=== PATIENT | female | born 1955 | race Hispanic/Latino ===

== ENCOUNTER 2020-01-28 20:23 | Observation (INO) | payer MEDICARE, OTHER ==
[~2020-01-28 20:23] MED LIST: Iopamidol-370 76% 500 ML 1 ML ONE
[2020-01-28] MEDS ORDERED: Ondansetron PF 4 MG/2 ML Vial ONE (21:08)
[2020-01-28] MEDS ORDERED: Ketorolac Tromethamine 30 MG/ML VIAL ONE (21:08)
[2020-01-28] MEDS ORDERED: Morphine 4 MG/ML VIAL ONE ×2 (21:08→23:03)
[2020-01-28 21:17] LABS: #Basophils 0.1 thou/uL (0.0-0.2); #Eosinphils 0.2 thou/uL (0.0-0.7); #Lymphocytes 2.7 thou/uL (1.20-3.40); #Monocytes 0.4 thou/uL (0.11-0.59); #Neutrophils 10.5 thou/uL (1.40-6.50); %Basophils 0.6 % (0.0-1.0); %Eosinophils 1.2 % (0.0-10.0); %Lymphocytes 19.4 % (21.0-51.0); %Monocytes 3.1 % (0.0-10.0); %Neutrophils 75.7 % (42.0-75.0); Hemoglobin 12.2 g/dL (12.0-16.0); Mean Corpuscular HGB CONC 33.5 g/dL (32.0-36.0); Mean Corpuscular Hemoglobin 29.2 pg (27.0-31.0); Mean Corpuscular Volume 87.2 fL (78.0-98.0); Mean Platelet Volume 8.2 fL (7.4-10.4); Platelet Count 298 thou/uL (130-400); RBC Distribution Width 11.5 % (11.5-14.5); Red Blood Cell (RBC) Count 4.17 mill/uL (4.20-5.40); White Blood Cell (WBC) Count 13.9 thou/uL (4.8-10.8)
[2020-01-28 21:17] LABS: Bilirubin Negative (Negative); Blood, Urine Negative (Negative); Clarity Clear (Clear); Glucose, Urine (Dipstick) Normal (Negative); Ketone, Urine Negative (Negative); Leukocyte Negative Leu/uL (Negative); Nitrite Negative (Negative); Protein, Urine (Dipstick) Negative (Neg-Trace); Specific Gravity, Urine 1.022 (1.002-1.036); Urobilinogen Normal mg/dL (Less than 2)
[2020-01-28 21:42] LABS: ALT (SGPT) 13 U/L (8-55); AST (SGOT) 10 U/L (5-34); Albumin 3.9 g/dL (3.4-4.8); Alkaline Phosphatase 71 U/L (40-110); Anion Gap 11 mmol/L (10-20); BUN (Urea Nitrogen) 22 mg/dL (9.8-20.1); Bilirubin, Total 0.4 mg/dL (0.2-1.2); Calc. Creatinine Clearance 0 mL/min (70-130); Calcium 8.8 mg/dL (7.8-10.44); Carbon Dioxide 29 mmol/L (23-31); Chloride 102 mmol/L (98-107); Estimated GFR-MDRD 84; Globulin 2.8 g/dL (2.4-3.5); Glucose 90 mg/dL (80-115); Lipase 16 U/L (8-78); Potassium 3.6 mmol/L (3.5-5.1); Protein, Total 6.7 g/dL (6.0-8.3); Sodium 138 mmol/L (136-145)
--- NOTE | 2020-01-28 22:43 | CT ---
CT ABDOMEN AND PELVIS WITH IV CONTRAST 01/28/2020 CLINICAL INFORMATION: Right flank and right lower quadrant abdominal pain. Nausea. COMPARISON: None. Technique: Multiple contiguous axial CT images are obtained through the abdomen and pelvis with IV contrast. Cor onal reformatted images are provided. FINDINGS: Lower Chest: Minimal linear scarring versus atelectasis is seen at the posterior right lung base. Lef t lung base is clear. Vessels: Vascular calcifications are seen in the abdominal aorta and iliac arteries. Abdomen: Portal vein:Patent Gallbladder: Surgically absent. Liver: Subcentimeter too small to characterize hypodense lesion is seen in the posterior segment righ t hepatic lobe. Spleen: within normal limits. Pancreas: within normal limits. Adrenals: within normal limits. Kidneys: within normal limits. Bowel: Small amount of retained fecal material is seen in the colon. Loops of small bowel are normal in caliber. Appendix: There is an appendicolith measuring 6 mm seen involving the origin of the appendix, and the appendix distal to this region is fluid-filled with dilatation of the tip of the appendix measuring 12 mm. There is minimal amount of periappendiceal stranding. Findings are suggestive of vini endicitis. Peritoneum: No ascites or free air; no fluid collection. Mesentery and Retroperitoneum: No enlarged mesenteric or retroperitoneal lymph nodes. Abdominal Wall: Tiny fat-containing umbilical hernia. Pelvis: Reproductive Organs: Hysterectomy. Bladder: within normal limits. Bones: Mild degenerative changes are seen in the spine. IMPRESSION: 1. Acute appendicitis. 2. Too small to characterize hypodense lesion right hepatic lobe. 3. Post surgical changes related to cholecystectomy and hysterectomy. 4. Above findings discussed Dr. Harrison in the emergency department on 01/28/2020 at 2239 hours.
[2020-01-28] MEDS ORDERED: Piperacillin/Tazobactam 3.375 GM VIAL ONE (23:03)
[2020-01-29] MEDS ORDERED: Ondansetron PF 4 MG/2 ML Vial IVP PRN ×2 (00:39→09:53)
[2020-01-29] MEDS ORDERED: Ondansetron ODT 4 MG TAB SL PRN (00:39)
[2020-01-29] MEDS ORDERED: Morphine 2 MG/ML VIAL SLOW IVP PRN ×2 (00:40→09:53)
[2020-01-29 01:03] VITALS: BMI 37.7
[2020-01-29] MEDS: Lactated Ringer's 1,000 ML IV SCH ×2 (01:30→08:52)
[2020-01-29] MEDS ORDERED: Piperacillin/Tazobactam 3.375 GM in Sodium Chloride 0.9% 100 ML IVPB SCH ×2 (06:00→12:00)
[2020-01-29] MEDS ORDERED: Bupivacaine 0.25% HCL 30 ML VIAL ONE (07:18)
[2020-01-29] MEDS ORDERED: Lidocaine 1% w/Epinephrine 1:100K 20 ML VIAL ONE (07:18)
[2020-01-29] MEDS ORDERED: Fentanyl 100 MCG/2 ML VIAL ONE (07:40)
[2020-01-29] MEDS ORDERED: Meperidine HCl/PF 25 MG/ML VIAL ONE (09:19)
[2020-01-29] MEDS ORDERED: Sodium Chloride 0.9% 1,000 ML IV SCH (09:53)
[2020-01-29] MEDS ORDERED: Morphine 4 MG/ML VIAL SLOW IVP PRN (09:53)
[2020-01-29] MEDS ORDERED: Promethazine HCl 25 MG/ML VIAL IM PRN (09:53)
[2020-01-29] MEDS ORDERED: hydrALAZINE 20 MG/ML VIAL SLOW IVP PRN (09:53)
[2020-01-29] MEDS ORDERED: Dextrose 50% Abboject 50 ML SYRINGE SLOW IVP PRN (09:53)
[2020-01-29] MEDS ORDERED: Dextrose 5% in Water 1,000 ML IV PRN (09:53)
--- NOTE | 2020-01-29 10:40 | HP ---
CHIEF COMPLAINT: Right lower quadrant pain. HISTORY OF PRESENT ILLNESS: This is a 64-year-old female with a history of pain in the right lower quadrant for 2 days. Pain is associated with nausea. No vomiting. No change in stool. No history of this pain before. No chronic abdominal pain or inflammatory bowel disease. PAST MEDICAL HISTORY: Includes hypertension. PAST SURGICAL HISTORY: Hysterectomy and abdominoplasty. MEDICATIONS: Taken daily losartan/hydrochlorothiazide. ALLERGIES: NO KNOWN DRUG ALLERGIES. SOCIAL HISTORY: No smoking or alcohol or other drugs. REVIEW OF SYSTEMS: 10-system review of systems is otherwise negative as described above. PHYSICAL EXAMINATION: HEENT: Sclerae are anicteric. Oropharynx clear. NECK: No lymphadenopathy. CHEST: Clear. HEART: Regular rate. ABDOMEN: Soft. Tender right lower quadrant with localized guarding. No rebound. No abdominal hernias. EXTREMITIES: No ischemia or edema to extremities. IMAGING STUDIES: CT scan shows acute appendicitis. ASSESSMENT: Acute appendicitis. PLAN: Laparoscopic appendectomy. The risks, benefits, and alternatives discussed. She gives consent. We will do this today. Job ID: [id number]
[2020-01-29] MEDS ORDERED: PHENYLEPHRINE-NS 100 MCG/ML 10 ML SYRINGE ONE (10:59)
[2020-01-29] MEDS ORDERED: Dexamethasone 20 MG/5 ML VIAL ONE (10:59)
[2020-01-29] MEDS ORDERED: PROPOFOL 200 MG/20 ML VIAL ONE (10:59)
[2020-01-29] MEDS ORDERED: Succinylcholine Chloride 20 MG/ML 10 ml SYRINGE FS ONE (10:59)
[2020-01-29] MEDS ORDERED: Glycopyrrolate 0.2 MG/ML 5 ML SYRINGE ONE (10:59)
[2020-01-29] MEDS ORDERED: Rocuronium Bromide 10 MG/ML (10ML VIAL) ONE (10:59)
[2020-01-29] MEDS ORDERED: Ketorolac Tromethamine 30 MG/ML VIAL ONE (10:59)
[2020-01-29] MEDS ORDERED: Lidocaine 1% PF 5 ML VIAL ONE (10:59)
[2020-01-29] MEDS ORDERED: EPHEDRINE 25 MG/5 ML SYRINGE ONE (10:59)
--- NOTE | 2020-01-29 11:03 | OP ---
DATE OF PROCEDURE: 01/29/2020 PREOPERATIVE DIAGNOSIS: Acute appendicitis. POSTOPERATIVE DIAGNOSIS: Acute appendicitis. OPERATION PERFORMED: Laparaoscopic appendectomy. ANESTHESIA: General endotracheal. ESTIMATED BLOOD LOSS: Minimal. COMPLICATIONS: None. FINDINGS: Appendicitis. SPECIMENS: Appendix. DESCRIPTION OF PROCEDURE: The patient was taken to the operating room and laid supine on the operating table. After general anesthetic was obtained, a Schrader catheter was placed. The abdomen was prepped and draped in a sterile fashion. A curved incision was made below the umbilicus. Cautery was used to dissect down to and incise the intra-abdominal fascia. The abdominal cavity was entered bluntly using a Rebecca clamp. A holding stitch of Vicryl was placed on each side of the fascia. A Janette trocar was placed. High-flow peritoneum was obtained. A suprapubic 5-mm port and a left lower quadrant 5-mm port were placed under direct camera visualization. The cecum was rolled over to reveal acute appendicitis. A small window was made at the base of the appendix at the mesoappendix. A laparoscopic stapler was fired across the base of the appendix. A reload was fired across the mesoappendix. There was no bleeding on the staple lines. The appendix was placed in the EndoCatch bag and brought out through the Janette. The right lower quadrant and pelvis was irrigated using sterile solution. There was no evidence of perforation, no pus. All port sites were infiltrated using local anesthesia. All ports were removed under camera visualization. Pneumoperitoneum was let down. Vicryl suture was used to close the fascial defect below the umbilicus; #4-0 Monocryl and Dermabond were used to close the skin incision. The patient was en route to recovery in stable condition. All instrument counts, needle counts, and lap counts were correct. Job ID: [id number]
[2020-01-29] MEDS: HYDROcodone/Acetaminophen 10/325 mg Tablet PO PRN ×2 (11:32→16:22)
[2020-01-29 11:49] LABS: SARS-CoV-2 MS2 Positive; SARS-CoV-2 N Gene Negative; SARS-CoV-2 S Gene Negative; SARS-CoV-2 by NAA Not Detected (NotDetected); SARS-CoV-2 orf1ab Negative
[2020-01-29 16:21] VITALS: BP 144/84; TEMP 98.3
[2020-01-29] MEDS ORDERED: Famotidine 20 MG TAB PO SCH (21:00)
[2020-01-29] MEDS ORDERED: Famotidine/PF 20 mg/2ml Vial SLOW IVP SCH (21:00)
[2020-01-30] MEDS ORDERED: Hydrochlorothiazide 25 MG TAB PO SCH (09:00)
[2020-01-30] MEDS ORDERED: Losartan 25 MG TAB PO SCH (09:00)
[2020-01-30] MEDS ORDERED: Non-Formulary Item 1 EACH (Irbesartan/Hydrochlorothiazide [Irbesartan-Hctz 300-12.5 Mg Tb PO SCH (09:00)
--- NOTE | 2020-02-01 14:47 | DIS ---
DATE OF ADMISSION: 01/28/2020 DATE OF DISCHARGE: 01/29/2020 ADMITTING DIAGNOSIS: Acute appendicitis. DISCHARGE DIAGNOSIS: Acute appendicitis. PROCEDURE: Laparoscopic appendectomy by Dr. Toledo without complication. CONDITION ON DISCHARGE: Improved. STAFF: Armin Toledo MD HOSPITAL COURSE: On postop day 1, the patient is doing well. She is discharged home. She will follow up with me in 2 weeks. Job ID: [id number]
== END 2020-01-29 16:36 | disposition home or self-care (01) ==
LOC: ERS 20:23 → SJJU 23:01
PROVIDERS: ADMIT Surgery; ATTEND Surgery
PROC: 0DTJ4ZZ Resection of Appendix, Percutaneous Endoscopic Approach (ICD-10-PCS; principal; 2020-01-28)
DX: K35.33 Acute appendicitis with perforation, localized peritonitis, and gangrene, with abscess (principal); I10 Essential (primary) hypertension; F32.9 Major depressive disorder, single episode, unspecified; Z79.899 Other long term (current) drug therapy; Z11.59 Encounter for screening for other viral diseases; Z20.828 Contact with and (suspected) exposure to other viral communicable diseases
CPT/HCPCS: 44970; 74177; 80053; 81003; 83690; 85025; 88304; 96361 ×2; 96365; 96366; 96375; 96376 ×2; 99285; G0378 ×2; J2270; U0003; 87635; J1100; J1885; J2175; J2405; J2543; J2704; J3010; J3490; Q9967; S0020

== ENCOUNTER 2020-04-13 08:28 | Outpatient (CLI) | payer MEDICARE ==
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
== END 2020-04-13 08:29 | disposition home or self-care (01) ==
LOC: BICRAD 08:28
PROVIDERS: ATTEND Internal Medicine
DX: S80.02XA Contusion of left knee, initial encounter (principal); M17.12 Unilateral primary osteoarthritis, left knee

== ENCOUNTER 2020-04-22 09:19 | Outpatient (CLI) | payer MEDICARE ==
--- NOTE | 2020-04-22 10:10 | BD ---
EXAM: Bone densitometry using DEXA HISTORY: 64 yo female. Screening for postmenopausal osteoporosis FINDINGS: L1--bone mineral density 0.917 g/sq cm; T score -0.7 ; Z score 1.0 L2--bone mineral density 0.957 g/sq cm; T score -0.6 ; Z score 1.2 L3--bone mineral density 0.896 g/sq cm; T score -1.7 ; Z score 0.2 L4--bone mineral density 0.877 g/sq cm; T score -1.7 ; Z score 0.3 Total L1-L4--bone mineral density 0.907 g/sq cm; T score -1.3 ; Z score 0.6 Left femoral neck--bone mineral density0.935; T score 2.8 ; Z score 2.1 Total proximal left femur--bone mineral density 1.114; T score 1.4 ; Z score 2.3 The 10 year fracture risk for a major osteoporotic fracture is 6.6% and for a hip fracture is 0.1%. IMPRESSION: Osteopenia
--- NOTE | 2020-04-22 10:32 | MMO ---
Bilateral MAMMO Bilat Screen [facility]. CLINICAL HISTORY: Patient is 64 years old and is seen for screening. The patient has no family history of breast cancer. The patient has no personal history of cancer. VIEWS: The views performed were: bilateral craniocaudal with tomosynthesis and bilateral mediolateral oblique with tomosynthesis. FILMS COMPARED: The present examination has been compared to prior imaging studies performed at [facility] on 12/30/2017 and 01/01/2019. This study has been interpreted with the assistance of computer-aided detection. MAMMOGRAM FINDINGS: The breasts are heterogeneously dense, which could obscure a lesion on mammography. There are stable calcifications seen in both breasts. There are no suspicious masses, suspicious calcifications, or new areas of architectural distortion. IMPRESSION: THERE IS NO MAMMOGRAPHIC EVIDENCE OF MALIGNANCY. A ROUTINE FOLLOW-UP MAMMOGRAM IN 1 YEAR IS RECOMMENDED. THE RESULTS OF THIS EXAM WERE SENT TO THE PATIENT. ACR BI-RADS Category 2 - Benign finding MAMMOGRAPHY NOTE: 1. A negative mammogram report should not delay a biopsy if a dominant of clinically suspicious mass is present. 2. Approximately 10% to 15% of breast cancers are not detected by mammography. 3. Adenosis and dense breasts may obscure an underlying neoplasm. Reported by: MARY JASMINE MD Electonically Signed: [id number]
== END 2020-04-22 09:20 | disposition home or self-care (01) ==
LOC: BICMAMMO 09:19
PROVIDERS: ATTEND Internal Medicine
DX: Z12.31 Encounter for screening mammogram for malignant neoplasm of breast (principal); N95.9 Unspecified menopausal and perimenopausal disorder; M85.88 Other specified disorders of bone density and structure, other site
CPT/HCPCS: 77063; 77067; 77080

== ENCOUNTER 2020-08-30 13:20 | Day surgery (SDC) | payer MEDICARE ==
[2020-08-30 08:17] LABS: #Eosinphils 0.2 thou/uL (0.0-0.7); #Lymphocytes 2.1 thou/uL (1.20-3.40); #Monocytes 0.2 thou/uL (0.11-0.59); #Neutrophils 4.5 thou/uL (1.40-6.50); %Basophils 0.6 % (0.0-1.0); %Lymphocytes 30.2 % (21.0-51.0); %Monocytes 2.3 % (0.0-10.0); %Neutrophils 63.9 % (42.0-75.0); Hemoglobin 12.1 g/dL (12.0-16.0); Mean Corpuscular HGB CONC 31.6 g/dL (32.0-36.0); Mean Corpuscular Hemoglobin 27.5 pg (27.0-31.0); Mean Platelet Volume 7.9 fL (7.4-10.4); Platelet Count 281 thou/uL (130-400); RBC Distribution Width 11.6 % (11.5-14.5); Red Blood Cell (RBC) Count 4.39 mill/uL (4.20-5.40); White Blood Cell (WBC) Count 7.1 thou/uL (4.8-10.8)
[2020-08-30 08:38] LABS: Anion Gap 12 mmol/L (10-20); BUN (Urea Nitrogen) 20 mg/dL (9.8-20.1); Calc. Creatinine Clearance 128 mL/min (70-130); Calcium 8.8 mg/dL (7.8-10.44); Carbon Dioxide 27 mmol/L (23-31); Chloride 106 mmol/L (98-107); Glucose 121 mg/dL (80-115); Potassium 4.3 mmol/L (3.5-5.1); Sodium 141 mmol/L (136-145)
[2020-08-30 08:54] LABS: SARS-CoV-2 NAA Rapid Test Not Detected (NotDetected)
[~2020-08-30 13:20] MED LIST changes: +Acetaminophen 325 MG TAB PO PRN; +Bupivacaine 0.25% HCL 30 ML VIAL ONE; +Bupivacaine HCl 0.5%/Epinephrine 1:200,000/PF 30 ml Vial ONE; +Dexamethasone 20 MG/5 ML VIAL ONE; +Fentanyl 100 MCG/2 ML VIAL IV PRN; +Fentanyl 100 MCG/2 ML VIAL ONE; -Iopamidol-370 76% 500 ML 1 ML ONE; +Ketorolac Tromethamine 30 MG/ML VIAL IVP SCH; +Lidocaine 1% PF 5 ML VIAL ONE; +Midazolam HCl 2 mg/2 ml Vial ONE; +Ondansetron HCl/PF 4 MG/2 ML Vial IVP PRN; +Ondansetron PF 4 MG/2 ML Vial IVP PRN; +Ondansetron PF 4 MG/2 ML Vial ONE; +PROPOFOL 200 MG/20 ML VIAL ONE; +Promethazine HCl 25 MG/ML VIAL IM PRN; +Promethazine HCl 25 MG/ML VIAL ONE; +Promethazine HCl 25 MG/ML VIAL SLOW IVP PRN; +Ropivacaine 2% HCl/PF (20 MG/10 ML VIAL) ONE; +Ropivacaine HCl/PF 250 ML in Premix Bag 1 BAG NERVE BLCK SCH; +Sodium Chloride 0.9% 100 ML ONE; +Tranexamic Acid 1,000 MG/10 ML VIAL ONE; +Vancomycin 1.5 GRAM/300 ML BAG ONE; +Zolpidem Tartrate 5 MG TAB PO PRN; +diphenhydrAMINE 25 MG CAP PO PRN; +traMADol HCl 50 MG TAB PO PRN
[2020-08-30] MEDS ORDERED: Fentanyl 100 MCG/2 ML VIAL ONE (13:53)
[2020-08-30] MEDS ORDERED: Hyoscyamine Sulfate SL 0.125 mg Tablet SL PRN (14:18)
[2020-08-30] MEDS ORDERED: Non-Formulary Medication 1 EACH PO PRN (14:25)
[2020-08-30] MEDS ORDERED: Ondansetron HCl/PF 4 MG/2 ML Vial IVP PRN (14:30)
[2020-08-30] MEDS ORDERED: Promethazine HCl 25 MG/ML VIAL IM/IV PRN (14:30)
[2020-08-30] MEDS ORDERED: PACU-Morphine 4MG/ML VIAL SLOW IVP PRN (14:30)
[2020-08-30] MEDS ORDERED: Morphine Sulfate 2 MG/ML SYRINGE SLOW IVP PRN (14:30)
[2020-08-30] MEDS ORDERED: Ropivacaine 0.2% 550 ML 550 ML NERVE BLCK SCH (14:30)
[2020-08-30] MEDS ORDERED: Morphine 4 MG/ML VIAL ONE (14:39)
--- NOTE | 2020-08-30 14:55 | RAD ---
Exam: XR Knee Lt 2 View HISTORY: Post total knee replacement. COMPARISON: 04/13/2020 FINDINGS: Interval postoperative changes related to left total knee replacement. Subcutaneous edema and emphyse ma are seen about the knee greater anteriorly. No hardware complication is seen. No fracture or dislocation is identified. There is a 5 mm in length linear radiopaque density just anterior to the l ower aspect of the anterior tibial tuberosity. No radiopaque foreign bodies a possibility, this is not seen on the frontal projection and may be related to overlying artifact. IMPRESSION: 1. Postoperative changes related to recent left total knee prosthesis. 2. Linear radiopaque density overlying soft tissues just anterior to the lower aspect of the anterior tibial tuberosity which is not visualized on the frontal projection and may be attributable to overlying artifact as opposed to radiopaque foreign body.
[2020-08-30] MEDS ORDERED: Morphine 2 MG/ML VIAL ONE (15:43)
[2020-08-30] MEDS ORDERED: Vancomycin 1 GM/200 ML BAG ONE (18:12)
[2020-08-30] MEDS: CEFAZOLIN 2 GM in Premix Bag 1 BAG IVPB SCH (18:22)
[2020-08-30] MEDS: HYDROcodone/Acetaminophen 10/325 mg Tablet PO PRN (18:59)
[2020-08-30] MEDS ORDERED: HYDROcodone/Acetaminophen 10/325 mg Tablet ONE (18:59)
[2020-08-30] MEDS ORDERED: Vancomycin HCl 1 GM in Sodium Chloride 0.9% 250 ML 250 ML IVPB SCH (20:00)
[2020-08-30] MEDS ORDERED: Vancomycin 1 GM in Premix Bag 1 BAG IVPB SCH (20:00)
[2020-08-30] MEDS ORDERED: Atorvastatin Calcium 10 MG TAB PO SCH (21:00)
[2020-08-30] MEDS: Aspirin 81 mg Enteric Coated Tablet PO SCH (21:23)
[2020-08-30] MEDS: Gabapentin 300 MG CAP PO SCH (21:23)
[2020-08-31] MEDS: CEFAZOLIN 2 GM in Premix Bag 1 BAG IVPB SCH (00:17)
[2020-08-31] MEDS ORDERED: HYDROcodone/Acetaminophen 10/325 mg Tablet ONE ×4 (02:46→10:58)
[2020-08-31] MEDS: HYDROcodone/Acetaminophen 10/325 mg Tablet PO PRN ×5 (02:48→20:48)
[2020-08-31 05:42] VITALS: BMI 39.5
[2020-08-31 08:09] LABS: Hemoglobin 10.8 g/dL (12.0-16.0); Mean Corpuscular HGB CONC 32.1 g/dL (32.0-36.0); Mean Corpuscular Hemoglobin 28.5 pg (27.0-31.0); Mean Corpuscular Volume 88.9 fL (78.0-98.0); Platelet Count 244 thou/uL (130-400); RBC Distribution Width 11.6 % (11.5-14.5); White Blood Cell (WBC) Count 12.7 thou/uL (4.8-10.8)
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
[2020-08-31] MEDS ORDERED: Ferrous Gluconate 324 MG TAB PO SCH (09:00)
[2020-08-31] MEDS ORDERED: Senokot S 8.6-50 MG TAB PO SCH (09:00)
[2020-08-31] MEDS ORDERED: Hydrochlorothiazide 25 MG TAB PO SCH (09:00)
[2020-08-31] MEDS ORDERED: Multivitamin W/ Minerals 1 TAB PO SCH (09:00)
[2020-08-31] MEDS ORDERED: Losartan 25 MG TAB PO SCH (09:00)
[2020-08-31] MEDS: Gabapentin 300 MG CAP PO SCH ×2 (09:05→20:47)
[2020-08-31] MEDS: Aspirin 81 mg Enteric Coated Tablet PO SCH ×2 (09:05→20:48)
[2020-08-31] MEDS ORDERED: traMADol HCl 50 MG TAB PO PRN ×2 (16:43)
[2020-08-31] MEDS ORDERED: HYDROcodone/Acetaminophen 10/325 mg Tablet PO PRN (16:43)
[2020-08-31] MEDS ORDERED: Promethazine HCl 25 MG/ML VIAL IM PRN (16:44)
[2020-08-31] MEDS ORDERED: Zolpidem Tartrate 5 MG TAB PO PRN (16:44)
[2020-08-31] MEDS ORDERED: Ondansetron PF 4 MG/2 ML Vial IVP PRN (16:44)
[2020-08-31] MEDS ORDERED: diphenhydrAMINE 25 MG CAP PO PRN (16:44)
[2020-08-31] MEDS ORDERED: Acetaminophen 325 MG TAB PO PRN (16:44)
[2020-08-31] MEDS ORDERED: Fentanyl 100 MCG/2 ML VIAL IV PRN (16:44)
[2020-08-31] MEDS ORDERED: Hyoscyamine Sulfate SL 0.125 mg Tablet SL PRN (16:45)
[2020-08-31] MEDS ORDERED: Ropivacaine 0.2% 550 ML 550 ML NERVE BLCK SCH (17:00)
[2020-08-31] MEDS ORDERED: Acetaminophen 650 MG Suppository PR PRN (17:41)
[2020-08-31] MEDS ORDERED: Albuterol 200 PUFF (6.7GM INHALER) INH PRN (18:03)
[2020-08-31] MEDS ORDERED: Albuterol Sulfate 2.5 mg/3 ml Neb NEB PRN (18:07)
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
[2020-08-31 19:11] LABS: ALT (SGPT) 35 U/L (8-55); AST (SGOT) 26 U/L (5-34); Albumin 3.3 g/dL (3.4-4.8); Alkaline Phosphatase 78 U/L (40-110); Anion Gap 12 mmol/L (10-20); BUN (Urea Nitrogen) 12 mg/dL (9.8-20.1); Bilirubin, Total 0.3 mg/dL (0.2-1.2); Calc. Creatinine Clearance 128 mL/min (70-130); Calcium 7.8 mg/dL (7.8-10.44); Carbon Dioxide 26 mmol/L (23-31); Chloride 102 mmol/L (98-107); Globulin 2.4 g/dL (2.4-3.5); Glucose 236 mg/dL (80-115); Magnesium 1.5 mg/dL (1.6-2.6); Potassium 3.7 mmol/L (3.5-5.1); Protein, Total 5.7 g/dL (5.8-8.1); Sodium 136 mmol/L (136-145)
[2020-08-31] MEDS: Senokot S 8.6-50 MG TAB PO SCH (20:46)
[2020-08-31] MEDS: Ferrous Gluconate 324 MG TAB PO SCH (20:49)
[2020-08-31] MEDS ORDERED: Famotidine 20 MG TAB PO SCH (21:00)
[2020-08-31] MEDS ORDERED: Atorvastatin Calcium 10 MG TAB PO SCH (21:00)
[2020-08-31] MEDS: Magnesium Sulfate 2 GM in Sodium Chloride 0.9% 100 ML IVPB SCH ×2 (21:08→23:52)
[2020-08-31] MEDS ORDERED: Magnesium Sulfate 2 GM in Sodium Chloride 0.9% 100 ML IVPB SCH (22:00)
[2020-09-01] MEDS: HYDROcodone/Acetaminophen 10/325 mg Tablet PO PRN ×3 (02:59→16:14)
[2020-09-01 06:21] LABS: #Basophils 0.1 thou/uL (0.0-0.2); #Eosinphils 0.2 thou/uL (0.0-0.7); #Monocytes 0.9 thou/uL (0.11-0.59); #Neutrophils 10.6 thou/uL (1.40-6.50); %Basophils 0.6 % (0.0-1.0); %Eosinophils 1.1 % (0.0-10.0); %Lymphocytes 14.7 % (21.0-51.0); %Monocytes 6.2 % (0.0-10.0); %Neutrophils 77.3 % (42.0-75.0); Hemoglobin 10.1 g/dL (12.0-16.0); Mean Corpuscular HGB CONC 31.5 g/dL (32.0-36.0); Mean Corpuscular Hemoglobin 27.8 pg (27.0-31.0); Mean Corpuscular Volume 88.1 fL (78.0-98.0); Mean Platelet Volume 7.9 fL (7.4-10.4); Platelet Count 234 thou/uL (130-400); RBC Distribution Width 11.9 % (11.5-14.5); Red Blood Cell (RBC) Count 3.64 mill/uL (4.20-5.40); White Blood Cell (WBC) Count 13.7 thou/uL (4.8-10.8)
[2020-09-01 06:28] LABS: Hemoglobin A1c 5.9 % (4.0-6.0)
[2020-09-01 06:45] LABS: ALT (SGPT) 37 U/L (8-55); AST (SGOT) 29 U/L (5-34); Albumin 3.3 g/dL (3.4-4.8); Alkaline Phosphatase 77 U/L (40-110); Anion Gap 11 mmol/L (10-20); BUN (Urea Nitrogen) 9 mg/dL (9.8-20.1); Bilirubin, Total 0.3 mg/dL (0.2-1.2); Calc. Creatinine Clearance 150 mL/min (70-130); Calcium 7.8 mg/dL (7.8-10.44); Carbon Dioxide 28 mmol/L (23-31); Chloride 101 mmol/L (98-107); Globulin 2.8 g/dL (2.4-3.5); Glucose 135 mg/dL (80-115); Magnesium 2.2 mg/dL (1.6-2.6); Potassium 3.7 mmol/L (3.5-5.1); Protein, Total 6.1 g/dL (5.8-8.1); Sodium 136 mmol/L (136-145)
[2020-09-01] MEDS: Aspirin 81 mg Enteric Coated Tablet PO SCH (08:24)
[2020-09-01] MEDS: Ferrous Gluconate 324 MG TAB PO SCH (08:25)
[2020-09-01] MEDS: Senokot S 8.6-50 MG TAB PO SCH (08:26)
[2020-09-01] MEDS: Gabapentin 300 MG CAP PO SCH (08:28)
[2020-09-01] MEDS ORDERED: Losartan 25 MG TAB PO SCH (09:00)
[2020-09-01] MEDS ORDERED: Multivitamin W/ Minerals 1 TAB PO SCH (09:00)
[2020-09-01] MEDS ORDERED: Hydrochlorothiazide 25 MG TAB PO SCH (09:00)
[2020-09-01] MEDS ORDERED: hydrALAZINE 20 MG/ML VIAL SLOW IVP PRN (14:08)
--- NOTE | 2020-09-01 14:09 | PDOC.HOSPP ---
- Subjective Encounter Date: 09/01/20 Encounter Time: 11:10 Subjective: Patient seen this morning I explained her lab findings her creatinine normal white count is trending down she has elevated blood pressure. She walked with physical therapy yesterday and today plan for the same. Blood pressure is slightly elevated that is expected. She is on irbesartan and hydrochlorothiazide which will continue the same. Provided hydralazine as needed to keep the systolic below 160. - Objective Vital Signs & Weight: Vital Signs (12 hours) Temp Pulse Resp BP Pulse Ox 09/01/20 12:00 98.6 F 88 16 148/78 H 91 L 09/01/20 08:00 91 L 09/01/20 07:52 99.5 F 95 18 146/71 H 91 L 09/01/20 05:00 98.0 F 78 16 148/70 H 96 Weight Weight 223 lb I&O: 08/31/20 09/01/20 09/02/20 06:59 06:59 06:59 Intake Total 480 Output Total 2200 Balance -1720 Result Diagrams: 09/01/20 05:31 09/01/20 05:31 Additional Labs: Accuchecks 09/01/20 13:21 POC Glucose 156 H Hospitalist ROS - Medication Medications: Active Medications Generic Name Dose Route Start Last Admin Trade Name Freq PRN Reason Stop Dose Admin Hydrocodone Bitart/Acetaminophen 2 tab 08/31/20 16:43 09/01/20 08:26 Hydrocodone/Acetaminophen 10/325 Mg Tablet PO 2 tab Q4H PRN Administration PAIN (4-6) Aspirin 81 mg 08/31/20 21:00 09/01/20 08:24 Aspirin 81 Mg Enteric Coated Tablet PO 81 mg BID LELA Administration Atorvastatin Calcium 10 mg 08/31/20 21:00 08/31/20 20:48 Atorvastatin Calcium 10 Mg Tab PO 10 mg HS LELA Administration Diphenhydramine HCl 25 mg 08/31/20 16:44 08/31/20 17:38 Diphenhydramine 25 Mg Cap PO 25 mg Q6H PRN Administration Itching Fentanyl 50 mcg 08/31/20 16:44 09/01/20 12:13 Fentanyl 100 Mcg/2 Ml Vial IV 50 mcg Q1H PRN Administration BREAKTHROUGH PAIN Ferrous Gluconate 324 mg 08/31/20 21:00 09/01/20 08:25 Ferrous Gluconate 324 Mg Tab PO 324 mg BID LELA Administration Gabapentin 300 mg 08/31/20 21:00 09/01/20 08:28 Gabapentin 300 Mg Cap PO 300 mg BID LELA Administration Hydrochlorothiazide 12.5 mg 09/01/20 09:00 09/01/20 08:25 Hydrochlorothiazide 25 Mg Tab PO 12.5 mg DAILY LELA Administration Iron/Minerals/Multivitamins 1 tab 09/01/20 09:00 09/01/20 08:25 Multivitamin W/ Minerals 1 Tab PO 1 tab DAILY LELA Administration Losartan Potassium 100 mg 09/01/20 09:00 09/01/20 08:28 Losartan 25 Mg Tab PO 100 mg DAILY LELA Administration Pantoprazole Sodium 40 mg 09/01/20 09:00 09/01/20 08:25 Pantoprazole 40 Mg Tab PO 40 mg DAILY LELA Administration Senna/Docusate Sodium 2 tab 08/31/20 21:00 09/01/20 08:26 Senokot S 8.6-50 Mg Tab PO 2 tab BID LELA Administration Sertraline HCl 50 mg 08/31/20 21:00 08/31/20 20:47 Sertraline Hcl 25 Mg Tab PO 50 mg HS LELA Administration Hospitalist Exam Vitals: Vital Signs (12 hours) Temp Pulse Resp BP Pulse Ox 09/01/20 12:00 98.6 F 88 16 148/78 H 91 L 09/01/20 08:00 91 L 09/01/20 07:52 99.5 F 95 18 146/71 H 91 L 09/01/20 05:00 98.0 F 78 16 148/70 H 96 Weight Weight 223 lb General Appearance: NAD, awake alert Eye: PERRL ENT: normocephalic atraumatic Neck: supple Heart: RRR, normal peripheral pulses Respiratory: CTAB, normal chest expansion Gastrointestinal: soft, normal bowel sounds Neurological: cranial nerve grossly intact, no focal deficits Psychiatric: A&O x 3 Hosp A/P - Plan Status post left total knee arthroplasty Physical therapy Bowel regimen Leukocytosis -Stress demargination trending down Hypertension Normal renal function She walked with physical therapy yesterday and today plan for the same. Blood pressure is slightly elevated that is expected. She is on irbesartan and hydrochlorothiazide which will continue the same. Provided hydralazine as needed to keep the systolic below 160. Hyperlipidemia -lipitor Ambulation Patient is medically stable and can be transferred to the inpatient rehab per orthopedic at their discretion.
[2020-09-01 16:45] VITALS: BP 153/79; TEMP 99
--- NOTE | 2020-09-01 21:02 | EKG ---
Test Reason : STAT Blood Pressure : / mmHG Vent. Rate : 106 BPM Atrial Rate : 106 BPM P-R Int : 188 ms QRS Dur : 100 ms QT Int : 354 ms P-R-T Axes : 061 054 045 degrees QTc Int : 470 ms Sinus tachycardia Otherwise normal ECG No previous ECGs available Confirmed by Wandy MARTINEZ ([id number]) on 09/01/2020 9:02:27 PM Referred By: ANNIE Confirmed By:Wandy MARTINEZ
--- NOTE | 2020-09-02 15:12 | DIS ---
DATE OF ADMISSION: 08/30/2020 DATE OF DISCHARGE: 09/01/2020 PREOPERATIVE DIAGNOSIS: Left knee osteoarthritis/degenerative joint disease. POSTOPERATIVE DIAGNOSIS: Left knee osteoarthritis/degenerative joint disease. PROCEDURE: The patient underwent left knee replacement. LABORATORY DATA: Hospital stay was unremarkable. She was admitted to [place] [address], where she worked with staff, Physical Therapy, and Occupational Therapy and progressed quite well. By postop day 2, she was doing well enough to discharge home. DISCHARGE CONDITION: Good/stable. DISPOSITION: Home with family. FOLLOWUP: Would be in 2 to 3 weeks, sooner if there are problems and/or concerns. DISCHARGE MEDICATIONS: Given with usage instructions. Job ID: [id number]
== END 2020-09-01 16:45 | disposition home or self-care (01) ==
LOC: SURG A 13:20 → SUATTDRO 13:20 → SJX 13:20 → PACU-TCU 13:20 → EDSTATUS 16:00 → SURG B 08-31 13:48 → SJX 09-01 16:45
PROVIDERS: ATTEND Internal Medicine
PROC: 0SRD0J9 Replacement of Left Knee Joint with Synthetic Substitute, Cemented, Open Approach (ICD-10-PCS; principal; 2020-08-30)
PROC: 3E0T3BZ Introduction of Anesthetic Agent into Peripheral Nerves and Plexi, Percutaneous Approach (ICD-10-PCS; 2020-08-30)
PROC: 3E0T3BZ Introduction of Anesthetic Agent into Peripheral Nerves and Plexi, Percutaneous Approach (ICD-10-PCS; 2020-08-30)
DX: M17.0 Bilateral primary osteoarthritis of knee (principal); G89.18 Other acute postprocedural pain; I10 Essential (primary) hypertension; E78.00 Pure hypercholesterolemia, unspecified; F32.9 Major depressive disorder, single episode, unspecified; K58.9 Irritable bowel syndrome, unspecified; E11.9 Type 2 diabetes mellitus without complications; K21.9 Gastro-esophageal reflux disease without esophagitis; J45.909 Unspecified asthma, uncomplicated; R00.0 Tachycardia, unspecified; M79.7 Fibromyalgia; E66.9 Obesity, unspecified; Z68.39 Body mass index [BMI] 39.0-39.9, adult; Z86.010 Personal history of colon polyps; Z87.891 Personal history of nicotine dependence; Z79.1 Long term (current) use of non-steroidal anti-inflammatories (NSAID); Z79.899 Other long term (current) drug therapy; Z88.5 Allergy status to narcotic agent; Z20.822 Contact with and (suspected) exposure to COVID-19
CPT/HCPCS: 27447; 64445; 64448; 73560; 80048; 80053; 82962; 83036; 83735; 85025 ×2; 85027; 93005; 97110 ×2; 97116 ×2; 97139 ×2; A4306; C1713; C1776; J2270; U0002; 36415; 36416; 93010; J0690; J1100; J2250; J2405; J2550; J2704; J2795; J3010; J3370; J3475; J3490; J7050; Q0163; S0020

== ENCOUNTER 2021-02-16 12:30 | Inpatient (IN) | payer MEDICARE ==
[2021-02-20 10:09] VITALS: BMI 39.4
[2021-02-21] MEDS ORDERED: Vancomycin 1.5 GRAM/300 ML BAG 1.5 GM in Premix Bag 1 BAG IVPB SCH ×2 (07:45→20:00)
[2021-02-21] MEDS ORDERED: Tranexamic Acid 1,000 MG/10 ML VIAL ONE (07:54)
[2021-02-21] MEDS ORDERED: Sodium Chloride 0.9% 100 ML ONE (07:54)
[2021-02-21] MEDS ORDERED: Midazolam HCl 2 mg/2 ml Vial ONE (08:13)
[2021-02-21] MEDS ORDERED: Fentanyl 100 MCG/2 ML VIAL ONE (08:13)
[2021-02-21] MEDS ORDERED: Fentanyl 100 MCG/2 ML VIAL IV PRN (08:46)
[2021-02-21] MEDS ORDERED: HYDROcodone/Acetaminophen 10/325 mg Tablet PO PRN ×2 (09:00)
[2021-02-21] MEDS ORDERED: Promethazine HCl 25 MG/ML VIAL IM PRN (09:00)
[2021-02-21] MEDS ORDERED: traMADol HCl 50 MG TAB PO PRN ×2 (09:00)
[2021-02-21] MEDS ORDERED: Zolpidem Tartrate 5 MG TAB PO PRN (09:00)
[2021-02-21] MEDS ORDERED: Ropivacaine HCl/PF 250 ML in Premix Bag 1 BAG NERVE BLCK SCH (09:00)
[2021-02-21] MEDS ORDERED: Ondansetron PF 4 MG/2 ML Vial IVP PRN (09:00)
[2021-02-21] MEDS ORDERED: EPINEPHrine 1 MG/ML AMP ONE (09:17)
[2021-02-21] MEDS ORDERED: Bupivacaine 0.25% HCL 30 ML VIAL ONE (09:17)
[2021-02-21] MEDS ORDERED: Dexamethasone 20 MG/5 ML VIAL ONE (09:37)
[2021-02-21] MEDS ORDERED: ePHEDrine 50 MG/ML VIAL ONE (09:37)
[2021-02-21] MEDS ORDERED: Bupivacaine HCl 0.5%/Epinephrine 1:200,000/PF 30 ml Vial ONE (09:37)
[2021-02-21] MEDS ORDERED: Lidocaine 1% PF 5 ML VIAL ONE (09:37)
[2021-02-21] MEDS ORDERED: Ropivacaine 2% HCl/PF (20 MG/10 ML VIAL) ONE (09:37)
[2021-02-21] MEDS ORDERED: PROPOFOL 200 MG/20 ML VIAL ONE (09:37)
[2021-02-21] MEDS ORDERED: Ketorolac Tromethamine 30 MG/ML VIAL ONE (09:37)
[2021-02-21] MEDS ORDERED: Ondansetron PF 4 MG/2 ML Vial ONE (09:37)
[2021-02-21] MEDS ORDERED: diphenhydrAMINE 25 MG CAP PO PRN (12:43)
[2021-02-21] MEDS ORDERED: Acetaminophen 325 MG TAB PO PRN (12:43)
[2021-02-21] MEDS ORDERED: CEFAZOLIN 2 GM in Premix Bag 1 BAG IVPB SCH (14:00)
[2021-02-21] MEDS: Ketorolac Tromethamine 30 MG/ML VIAL IVP SCH ×2 (15:25→17:46)
[2021-02-21] MEDS: CEFAZOLIN 2 GM in Premix Bag 1 BAG IVPB SCH (16:31)
[2021-02-21] MEDS: Sodium Chloride 0.9% 1,000 ML IV SCH (17:57)
[2021-02-21] MEDS ORDERED: traMADol HCl 50 MG TAB ONE (19:51)
[2021-02-21] MEDS ORDERED: Aspirin 81 mg Enteric Coated Tablet ONE (19:51)
[2021-02-21] MEDS: Aspirin 81 mg Enteric Coated Tablet PO SCH (19:52)
[2021-02-21] MEDS ORDERED: Vancomycin HCl 1.5 GM in Sodium Chloride 0.9% 250 ML 300 ML IVPB SCH (20:00)
[2021-02-21] MEDS: Senokot S 8.6-50 MG TAB PO SCH (21:43)
[2021-02-21] MEDS: Ferrous Gluconate 324 MG TAB PO SCH (21:43)
[2021-02-22] MEDS: Ketorolac Tromethamine 30 MG/ML VIAL IVP SCH ×4 (00:06→18:06)
[2021-02-22] MEDS: CEFAZOLIN 2 GM in Premix Bag 1 BAG IVPB SCH (00:06)
[2021-02-22] MEDS ORDERED: Ketorolac Tromethamine 30 MG/ML VIAL ONE ×2 (00:14→17:57)
[2021-02-22] MEDS ORDERED: Zolpidem Tartrate 5 MG TAB PO PRN (00:14)
[2021-02-22] MEDS: Sodium Chloride 0.9% 1,000 ML IV SCH ×4 (00:18→19:37)
[2021-02-22] MEDS ORDERED: traMADol HCl 50 MG TAB ONE (04:15)
[2021-02-22 05:34] LABS: Hemoglobin 10.5 g/dL (12.0-16.0); Mean Corpuscular HGB CONC 33.4 g/dL (32.0-36.0); Mean Corpuscular Hemoglobin 29.1 pg (27.0-31.0); Mean Platelet Volume 7.9 fL (7.4-10.4); Platelet Count 266 thou/uL (130-400); Red Blood Cell (RBC) Count 3.61 mill/uL (4.20-5.40); White Blood Cell (WBC) Count 14.8 thou/uL (4.8-10.8)
[2021-02-22] MEDS ORDERED: Fentanyl 100 MCG/2 ML VIAL IV PRN (08:46)
[2021-02-22] MEDS ORDERED: Multivitamin W/ Minerals 1 TAB PO SCH (09:00)
[2021-02-22] MEDS ORDERED: HYDROcodone/Acetaminophen 10/325 mg Tablet PO PRN (09:17)
[2021-02-22] MEDS ORDERED: traMADol HCl 50 MG TAB PO PRN ×2 (09:17→09:18)
[2021-02-22] MEDS ORDERED: Ondansetron PF 4 MG/2 ML Vial IVP PRN (09:18)
[2021-02-22] MEDS ORDERED: Promethazine HCl 25 MG/ML VIAL IM PRN (09:18)
[2021-02-22] MEDS ORDERED: Acetaminophen 325 MG TAB PO PRN (09:18)
[2021-02-22] MEDS ORDERED: diphenhydrAMINE 25 MG CAP PO PRN (09:18)
[2021-02-22] MEDS ORDERED: Ferrous Gluconate 324 MG TAB PO SCH (09:30)
[2021-02-22] MEDS ORDERED: Ropivacaine HCl/PF 250 ML in Premix Bag 1 BAG NERVE BLCK SCH (09:30)
[2021-02-22] MEDS: Aspirin 81 mg Enteric Coated Tablet PO SCH ×3 (09:51→20:36)
[2021-02-22] MEDS: Multivitamin W/ Minerals 1 TAB PO SCH (09:52)
[2021-02-22] MEDS: Senokot S 8.6-50 MG TAB PO SCH ×3 (09:52→20:37)
[2021-02-22] MEDS: Ferrous Gluconate 324 MG TAB PO SCH ×2 (10:31→17:15)
[2021-02-22] MEDS ORDERED: Loratadine 10 MG TAB PO PRN (10:52)
[2021-02-22] MEDS ORDERED: Hyoscyamine Sulfate SL 0.125 mg Tablet SL PRN (10:53)
[2021-02-22] MEDS: HYDROcodone/Acetaminophen 10/325 mg Tablet PO PRN (11:41)
[2021-02-22] MEDS: Gabapentin 300 MG CAP PO SCH ×2 (14:39→20:37)
[2021-02-22] MEDS ORDERED: Atorvastatin Calcium 10 MG TAB PO SCH (21:00)
[2021-02-22] MEDS ORDERED: [UNRECOGNIZED DRUG - OTHER] PO SCH (21:00)
[2021-02-23] MEDS: HYDROcodone/Acetaminophen 10/325 mg Tablet PO PRN ×3 (00:49→09:35)
[2021-02-23] MEDS: Ketorolac Tromethamine 30 MG/ML VIAL IVP SCH ×2 (00:49→05:13)
[2021-02-23 05:28] LABS: Hemoglobin 10.2 g/dL (12.0-16.0); Mean Corpuscular HGB CONC 32.6 g/dL (32.0-36.0); Mean Corpuscular Hemoglobin 28.5 pg (27.0-31.0); Mean Corpuscular Volume 87.4 fL (78.0-98.0); Mean Platelet Volume 7.9 fL (7.4-10.4); Platelet Count 269 thou/uL (130-400); Red Blood Cell (RBC) Count 3.58 mill/uL (4.20-5.40); White Blood Cell (WBC) Count 11.1 thou/uL (4.8-10.8)
[2021-02-23] MEDS: Sodium Chloride 0.9% 1,000 ML IV SCH (06:16)
[2021-02-23 07:21] VITALS: BP 151/74; TEMP 97.9
[2021-02-23] MEDS: Ferrous Gluconate 324 MG TAB PO SCH (08:40)
[2021-02-23] MEDS: Aspirin 81 mg Enteric Coated Tablet PO SCH (08:40)
[2021-02-23] MEDS: Gabapentin 300 MG CAP PO SCH (08:41)
[2021-02-23] MEDS: Senokot S 8.6-50 MG TAB PO SCH (08:42)
[2021-02-23] MEDS: Multivitamin W/ Minerals 1 TAB PO SCH (08:42)
[2021-02-23] MEDS ORDERED: Calcium Carbonate 600 MG TAB PO SCH (09:00)
[2021-02-23] MEDS ORDERED: Magnesium Oxide 400 MG TAB PO SCH (09:00)
[2021-02-23] MEDS ORDERED: HCTZ PO SCH (09:00)
[2021-02-23] MEDS ORDERED: IRBESARTAN PO SCH (09:00)
== END 2021-02-23 11:15 | disposition home or self-care (01) | DRG 470 ==
LOC: 2NO 02-21 06:19 → SURG A 02-21 14:00
PROVIDERS: ADMIT Orthopaedic Surgery; ATTEND Orthopaedic Surgery
PROC: 0SRC0J9 Replacement of Right Knee Joint with Synthetic Substitute, Cemented, Open Approach (ICD-10-PCS; principal; 2021-02-21)
DX: M17.11 Unilateral primary osteoarthritis, right knee (principal); Z20.822 Contact with and (suspected) exposure to COVID-19; I10 Essential (primary) hypertension; E78.5 Hyperlipidemia, unspecified; K58.9 Irritable bowel syndrome, unspecified; M79.7 Fibromyalgia; E66.9 Obesity, unspecified; Z96.652 Presence of left artificial knee joint; Z90.710 Acquired absence of both cervix and uterus; Z90.49 Acquired absence of other specified parts of digestive tract; Z88.5 Allergy status to narcotic agent; Z68.39 Body mass index [BMI] 39.0-39.9, adult; Z79.899 Other long term (current) drug therapy
CPT/HCPCS: 36415; 85027; C1713; C1776; J0171; J0690; J1100; J1885; J2250; J2405; J2704; J2795; J3010; J3370; J3490; S0020

== ENCOUNTER 2021-10-25 19:00 | Outpatient (CLI) | payer MEDICARE | END 2021-10-25 19:01 | disposition home or self-care (01) | LOC: SLEEPLAB 19:00 | PROVIDERS: ATTEND Internal Medicine | DX: G47.33 Obstructive sleep apnea (adult) (pediatric) (principal); R53.83 Other fatigue; F32.9 Major depressive disorder, single episode, unspecified; I10 Essential (primary) hypertension; R06.83 Snoring; G47.10 Hypersomnia, unspecified; G47.00 Insomnia, unspecified; E66.9 Obesity, unspecified; Z68.41 Body mass index [BMI] 40.0-44.9, adult | CPT/HCPCS: 95810 ==

== ENCOUNTER 2021-12-26 19:00 | Outpatient (CLI) | payer MEDICARE | END 2021-12-26 19:01 | disposition home or self-care (01) | LOC: SLEEPLAB 19:00 | PROVIDERS: ATTEND Internal Medicine | DX: G47.33 Obstructive sleep apnea (adult) (pediatric) (principal) | CPT/HCPCS: 95811 ==